=== PATIENT | male | born 1965 | race Two or more races ===

== ENCOUNTER 2016-12-13 06:14 | Emergency (ER) | payer SELFPAY ==
[~2016-12-13] VITALS: Ht 177.8 cm; Wt 75.0 kg
[2016-12-13] MEDS ORDERED: DIAZEPAM 5 MG TABLET ONE (07:39)
[2016-12-13] MEDS ORDERED: KETOROLAC 30 MG/1 ML ONE (07:39)
[2016-12-13] MEDS ORDERED: DIAZEPAM 5 MG TABLET PO ONE (08:00)
[2016-12-13] MEDS ORDERED: KETOROLAC 30 MG/1 ML IM ONE (08:00)
[2016-12-13 09:22] VITALS: BP 135/77
== END 2016-12-13 09:24 | disposition home or self-care (01) ==
LOC: ED 09:00
DX: S39.012A Strain of muscle, fascia and tendon of lower back, initial encounter (principal); M51.36 Other intervertebral disc degeneration, lumbar region; M54.2 Cervicalgia; M25.511 Pain in right shoulder; M25.512 Pain in left shoulder; V59.59XA Passenger in pick-up truck or van injured in collision with other motor vehicles in traffic accident, initial encounter; Y93.89 Activity, other specified; Y92.488 Other paved roadways as the place of occurrence of the external cause; Y99.8 Other external cause status
CPT/HCPCS: 72110; 96372; 99284; J1885